=== PATIENT | male | born 1930 | race Caucasian/White ===

== ENCOUNTER 2017-12-06 09:26 | Day surgery (SDC) | payer MEDICARE, OTHER ==
[~2017-12-06] VITALS: Ht 177.8 cm; Wt 78.9 kg
[2017-12-06] VITALS (8 sets, daily range): BP systolic 106–141; BP diastolic 41–72; PULSE 51–60; TEMP 97.7–97.9
[~2017-12-06 09:26] MED LIST: ANUSOL SUP1 SUPP.REC RC; CIPRO 500MG TA500 MG PO; FLOMAX 0.40.4 MG/CAP PO; PYRIDIUM200 M1 PO; ZESTRIL40 MG PO
[2017-12-06] MEDS ORDERED: ZESTRIL 20MG TA20 MG PO (10:07)
[2017-12-06] MEDS ORDERED: TYLENOL 325MG325 MG PO (14:20)
[2017-12-06] MEDS ORDERED: ROXICODONE 55 MG/TAB PO (14:22)
== END 2017-12-06 16:14 | disposition home or self-care (01) ==
LOC: SDCO 09:26
DX: K40.30 Unilateral inguinal hernia, with obstruction, without gangrene, not specified as recurrent (principal); I10 Essential (primary) hypertension; K21.9 Gastro-esophageal reflux disease without esophagitis
CPT/HCPCS: C1781; J0690; J1100; J1885; J2405; J2704; J3010; J7120